=== PATIENT | female | born 1965 | race Hispanic/Latino ===

== ENCOUNTER 2018-08-24 17:52 | Emergency (ER) | payer OTHER ==
[2018-08-24] MEDS ORDERED: LIDOCAINE 5% TOPICAL PATCH TP ONE (18:53)
[2018-08-24] MEDS ORDERED: DIAZEPAM 5 MG TABLET ONE (18:53)
[2018-08-24] MEDS ORDERED: KETOROLAC TROMETHAMINE 60 MG/2 ML VIAL ONE (18:53)
== END 2018-08-24 20:32 | disposition home or self-care (01) ==
LOC: EDH 17:52
DX: M54.16 Radiculopathy, lumbar region (principal); Z90.49 Acquired absence of other specified parts of digestive tract; Z98.890 Other specified postprocedural states
CPT/HCPCS: 99283; J1885

== ENCOUNTER 2018-08-30 19:54 | Emergency (ER) | payer OTHER ==
[2018-08-30] MEDS ORDERED: KETOROLAC TROMETHAMINE 60 MG/2 ML VIAL ONE (21:49)
[2018-08-30] MEDS ORDERED: LIDOCAINE/PRILOCAINE CREAM 5GM TUBE TP ONE (21:49)
== END 2018-08-30 22:10 | disposition home or self-care (01) ==
LOC: EDH 19:54
DX: M79.605 Pain in left leg (principal); M79.604 Pain in right leg; Z90.49 Acquired absence of other specified parts of digestive tract
CPT/HCPCS: 96372; 99283; J1885; J3490